=== PATIENT | female | born 1980 | race Caucasian/White ===

== ENCOUNTER 2019-04-08 11:04 | Emergency (ER) | payer SELFPAY ==
[~2019-04-08] VITALS: Ht 170.2 cm; Wt 60.0 kg
[2019-04-08 11:11] VITALS: BP 128/87
[2019-04-08] MEDS ORDERED: LORazepam INJ 2 MG/ML (ATIVAN) VIAL IM ONE (11:30)
--- NOTE | 2019-04-08 11:33 | ED General ---
General Chief Complaint: General Problems/Pain Stated Complaint: ITCHING Nursing Triage Note: Pt amb to triage with c/o itching. Pt reports upon rise on this day, she began to experience generalized itching sensation. Pt states, "I'm itchy, bitchy, and not happy bout it." No hives, rash, or redness noted. Pt denies pain discomfort or SOA. Pt noted to be elated and restless during triage. Nursing Sepsis Screen: No Definite Risk Source of Information: Patient Exam Limitations: No Limitations History of Present Illness Date Seen by Provider: Apr 08, 2019 Time Seen by Provider: 11:27 Initial Comments to ER by private vehicle with reports of generalized itching. Began upon awakening. She is unable to sit still, nearly dancing during the exam. Denies any methamphetamine use "unless someone slipped it in my drink". When I asked her when that might of happened she states "last night". Timing/Duration: 4-6 Hours Severity: Moderate Allergies and Home Medications Allergies Coded Allergies: No Known Drug Allergies (Unverified , 04/08/19) Patient Home Medication List Home Medication List Reviewed: Yes Review of Systems Review of Systems Constitutional: see HPI EENTM: see HPI Respiratory: no symptoms reported Cardiovascular: no symptoms reported Genitourinary: no symptoms reported Musculoskeletal: no symptoms reported Skin: see HPI Psychiatric/Neurological: No Symptoms Reported Hematologic/Lymphatic: No Symptoms Reported Past Tbbgehp-Dvsblv-Jaszce Hx Patient Social History Recent Foreign Travel: No Contact w/Someone Who Travel: No Recent Infectious Disease Expo: No Physical Exam Vital Signs Vital Signs - First Documented 04/08/19 11:11 Temp 36.6 Pulse 97 Resp 18 B/P (MAP) 128/87 (101) Pulse Ox 98 O2 Delivery Room Air Capillary Refill : Less Than 3 Seconds Height, Weight, BMI Height: '" Weight: lbs. oz. kg; 20.00 BMI Method: General Appearance: No Apparent Distress, WD/WN, Other (patient is quite clearly under the influence of most likely methamphetamine. She is nearly dancing during my exam. Asked why she is moving like this, she states she doesn't like anyone in her personal space and she always does this. She also states that she is legally blind) HEENT: PERRL/EOMI, TMs Normal Neck: Full Range of Motion, Normal Inspection Respiratory: No Accessory Muscle Use, No Respiratory Distress Cardiovascular: Normal Peripheral Pulses, Tachycardia Gastrointestinal: Non Tender, Soft Extremity: Normal Capillary Refill, Normal Inspection Neurologic/Psychiatric: Alert, Oriented x3 Skin: Normal Color, Warm/Dry Progress/Results/Core Measures Suspected Sepsis Recent Fever Within 48 Hours: No Infection Criteria Present: None New/Unexplained Altered Menta: No Sepsis Screen: No Definite Risk SIRS Temperature: Pulse: 97 Respiratory Rate: 18 Laboratory Tests 04/08/19 11:35: White Blood Count 10.0 Blood Pressure 128 /87 Mean: 101 Laboratory Tests 04/08/19 11:35: Platelet Count 300 Results/Orders Lab Results Laboratory Tests Test 04/08/19 11:35 Range/Units White Blood Count 10.0 4.3-11.0 10^3/uL Red Blood Count 3.75 L 4.35-5.85 10^6/uL Hemoglobin 11.7 11.5-16.0 G/DL Hematocrit 35 35-52 % Mean Corpuscular Volume 92 80-99 FL Mean Corpuscular Hemoglobin 31 25-34 PG Mean Corpuscular Hemoglobin Concent 34 32-36 G/DL Red Cell Distribution Width 13.3 10.0-14.5 % Platelet Count 300 130-400 10^3/uL Mean Platelet Volume 8.8 7.4-10.4 FL Neutrophils (%) (Auto) 65 42-75 % Lymphocytes (%) (Auto) 24 12-44 % Monocytes (%) (Auto) 11 0-12 % Eosinophils (%) (Auto) 0 0-10 % Basophils (%) (Auto) 1 0-10 % Neutrophils # (Auto) 6.5 1.8-7.8 X 10^3 Lymphocytes # (Auto) 2.4 1.0-4.0 X 10^3 Monocytes # (Auto) 1.1 H 0.0-1.0 X 10^3 Eosinophils # (Auto) 0.0 0.0-0.3 10^3/uL Basophils # (Auto) 0.1 0.0-0.1 10^3/uL My Orders Orders - ERIK BARTON APRN Cbc With Automated Diff (04/08/19 11:18) Comprehensive Metabolic Panel (04/08/19 11:18) Drug Screen Stat (Urine) (04/08/19 11:18) Lorazepam Injection (Ativan Injection) (04/08/19 11:30) Hydroxyzine Cap/Tab (Vistaril) (04/08/19 11:45) Vital Signs/I&O 04/08/19 11:11 Temp 36.6 Pulse 97 Resp 18 B/P (MAP) 128/87 (101) Pulse Ox 98 O2 Delivery Room Air Capillary Refill : Less Than 3 Seconds Blood Pressure Mean: 101 Departure Communication (Admissions) 1201-pt signed out AMA at this time. refused the ativan injection stating it would require her to use "4 epi pens" Impression Primary Impression: suspected methamphetamine use Disposition: AGAINST MEDICAL ADVICE Condition: Against Medical Advice Departure-Patient Inst. Decision time for Depature: 11:32 Referrals: NO,LOCAL PHYSICIAN (PCP/Family) Primary Care Physician Patient Instructions: Drug Abuse and Drug Addiction (DC) Add. Discharge Instructions: 1. It would Be a good idea to discontinue any additional methamphetamine use. I have Provided you with a list of resources for outpatient substance abuse. Return to ER for any concerns. All discharge instructions reviewed with patient and/or family. Voiced understanding. ERIK BARTON APRN Apr 08, 2019 11:32
--- NOTE | 2019-04-08 11:40 | NUR ---
Pt refused to give urine sample stating, "oh I can't jonah that for personal reasons. If ya know, ya know." Provider notified.
[2019-04-08 11:43] LABS: BASOPHILS # (AUTO) 0.1 10^3/uL (0.0-0.1); BASOPHILS % (AUTO) 1 % (0-10); EOSINOPHILS % (AUTO) 0 % (0-10); HEMATOCRIT 35 % (35-52); HEMOGLOBIN 11.7 G/DL (11.5-16.0); LYMPHOCYTES # (AUTO) 2.4 X 10^3 (1.0-4.0); LYMPHOCYTES % (AUTO) 24 % (12-44); MEAN CORPUSCULAR HEMOGLOBIN 31 PG (25-34); MEAN CORPUSCULAR HGB CONC 34 G/DL (32-36); MEAN CORPUSCULAR VOLUME 92 FL (80-99); MEAN PLATELET VOLUME 8.8 FL (7.4-10.4); MONOCYTES # (AUTO) 1.1 X 10^3 (0.0-1.0); MONOCYTES % (AUTO) 11 % (0-12); NEUTROPHILS # (AUTO) 6.5 X 10^3 (1.8-7.8); NEUTROPHILS % (AUTO) 65 % (42-75); PLATELET COUNT 300 10^3/uL (130-400); RED CELL DISTRIBUTION WIDTH 13.3 % (10.0-14.5)
[2019-04-08] MEDS ORDERED: hydrOXYzine (VISTARIL/ATARAX) 25 MG capsule/tablet PO ONE (11:45)
--- NOTE | 2019-04-08 11:51 | NUR ---
Met with [facility] Employee, Charlene. She said the pt is unable to be at [facility] due to drug abuse. She is encouraging the pt to go for rehab. The pt acted like she knew me and said "oh yeah, you went off on me. I know you." This information writer has not met the pt before. Redirected the pt to registration alongside Charlene who remained with the pt for support and direction.
--- NOTE | 2019-04-08 11:55 | NUR ---
REGISTRATION REPORTS PT WANT TO LEAVE AMA.
[2019-04-08 12:10] LABS: ALANINE AMINOTRANSFERASE 22 U/L (0-55); ALBUMIN 4.5 GM/DL (3.2-4.5); ALKALINE PHOSPHATASE 61 U/L (40-136); BILIRUBIN,TOTAL 0.6 MG/DL (0.1-1.0); BUN/CREATININE RATIO 30; CARBON DIOXIDE 20 MMOL/L (21-32); CHLORIDE 105 MMOL/L (98-107); CREATININE SERUM 1.01 MG/DL (0.60-1.30); GFR ESTIMATED > 60; GLUCOSE 92 MG/DL (70-105); POTASSIUM 4.1 MMOL/L (3.6-5.0); SODIUM 136 MMOL/L (135-145); TOTAL PROTEIN 7.7 GM/DL (6.4-8.2)
== END 2019-04-08 12:01 | disposition left against medical advice (07) ==
LOC: ER 11:08
DX: L29.9 Pruritus, unspecified (principal)
CPT/HCPCS: 36415; 80053; 85025

== ENCOUNTER 2019-09-09 11:37 | Emergency (ER) | payer SELFPAY ==
[~2019-09-09] VITALS: Ht 177.8 cm; Wt 58.5 kg
[2019-09-09] MEDS ORDERED: ZIPRASIDONE INJECTION 10 MG in WATER (STERILE) FOR INJECTION 1.2 ML IM PRN (12:00)
[2019-09-09 12:05] VITALS: BP 129/80
--- NOTE | 2019-09-09 12:06 | ED Cough/URI ---
General Chief Complaint: Respiratory Problems Stated Complaint: SOA;LUPUS Source: patient Exam Limitations: no limitations History of Present Illness Date Seen by Provider: Sep 09, 2019 Time Seen by Provider: 12:01 Initial Comments To ER reports of shortness of breath from her lupus because nobody will give her a hydroxychloroquine that she needs. She has no fevers or cough. She is homeless, she is from [facility] but she states that she met some very nice gentleman from [facility] with whom she is living now. She has joint pains, a rash all over her body. She states she's going to go to [email or web address] and cause [place] law.She also states this is going to be bigger than black lives matter and this will also cause zombies. She states that she was in rehabilitation in [place], but she was kicked out. SHe states that she is a recov ering meth addict, has been clean for a couple of days. Timing/Duration: constant Associated Symptoms: denies symptoms Allergies and Home Medications Allergies Coded Allergies: No Known Drug Allergies (Unverified , 04/08/19) Patient Home Medication List Home Medication List Reviewed: Yes Review of Systems Review of Systems Constitutional: see HPI EENTM: see HPI Respiratory: no symptoms reported Cardiovascular: no symptoms reported Genitourinary: no symptoms reported Musculoskeletal: no symptoms reported Skin: no symptoms reported Psychiatric/Neurological: No Symptoms Reported Hematologic/Lymphatic: No Symptoms Reported Past Hypujam-Ldzwma-Slduod Hx Patient Social History Type Used: Cigarettes 2nd Hand Smoke Exposure: Yes Recent Hopitalizations: No Physical Abuse: No Sexual Abuse: No Mistreated: No Fear: No Seasonal Allergies Seasonal Allergies: No Past Medical History Surgeries: Yes (Renal ) Respiratory: No Cardiac: No Neurological: No Genitourinary: Yes (ROB) Gastrointestinal: No Endocrine: No HEENT: No Cancer: No Psychosocial: No Integumentary: No Blood Disorders: No Physical Exam Vital Signs - First Documented 09/09/19 09/09/19 11:45 12:05 Temp 36.7 Pulse 78 Resp 21 B/P (MAP) 139/79 (99) Pulse Ox 99 O2 Delivery Room Air Capillary Refill : Height: '" Weight: lbs. oz. kg; 20.00 BMI Method: General Appearance: WD/WN, no apparent distress, thin (unable to sit still, writhing movements, dystonic movements of her face and lips. Talk to the high rate of speed in a pressured voice about a variety of subjects. She is insistent that she wants her prescription for hydroxychloroquine for her lupus. She also states that she likes my shoes and my is a very ronal lady) Neck: non-tender, full range of motion Respiratory: no respiratory distress, no accessory muscle use Gastrointestinal: normal bowel sounds, non tender Extremities: normal range of motion, non-tender Neurologic/Psychiatric: alert Skin: normal color, warm/dry Progress/Results/Core Measures Suspected Sepsis SIRS Temperature: Pulse: Respiratory Rate: Blood Pressure / Mean: Results/Orders Medications Given in ED Current Medications Medications Dose Ordered Sig/Leno Route Start Time Stop Time Status Last Admin Dose Admin Ziprasidone 10 mg/ Sterile Water 1.2 ml @ 0 mls/hr ONCE PRN IM 09/09/19 12:00 09/09/19 12:31 DC 09/09/19 12:00 0.5 MLS/HR Vital Signs/I&O 09/09/19 09/09/19 11:45 12:05 Temp 36.7 Pulse 78 81 Resp 21 20 B/P (MAP) 139/79 (99) 129/80 Pulse Ox 99 O2 Delivery Room Air Room Air Capillary Refill : Departure Communication (Admissions) I gave her 10 mg of Geodon intramuscularly left vastus lateralis Impression Primary Impression: self-reported history of lupus Additional Impressions: recent methamphetamine use Psychosis Disposition: HOME, SELF-CARE Condition: Stable Departure-Patient Inst. Decision time for Depature: 12:05 Referrals: EDVIN PENA BETHANY N MD NO,LOCAL PHYSICIAN (PCP) Primary Care Physician Patient Instructions: Acute Psychosis (DC) Add. Discharge Instructions: All discharge instructions reviewed with patient and/or family. Voiced understanding. ERIK BARTON APRN Sep 09, 2019 12:06
--- OUTSIDE RECORDS SUMMARY | 2019-09-09 14:47 | XMS REPORT | CCD ---
Author Author ANAMARIA KULKARNI Organization Unknown Address [address] [facility] [address] [place], [place] [id number] Care Team Providers Care Bilingual Legal Assistant Name Role Phone ZELAYA, TREVA DO Attphys ZELAYA, TREVA DO Prisurg Vital Signs Unknown or Not Available. Allergies Allergy Code Allergy Type Reaction Status LATEX 0 Allergy to substance A ctive KEFLEX 900171 Drug allergy Active Procedures Procedure Code Procedure Type Date SKULL PARTIAL 98819970 SNOMED CT 07/29/2015 History of Immunizations Unknown or Not Available. Problems Unknown or Not Available. Results Unknown or Not Available. Active Medications Unknown or Not Available. Medications Administered During Visit Unknown or Not Available. Encounters Encounter Diagnosis Diagnosis Code Start Date Health condition feared but not present [id number] 09 07/29/2015 Social History Smoking Status Code Start Date End Date Current every day smoker [id number] Patient Decision Aids Unknown or Not Available. Discharge Instructions You were admitted to [facility] on 07/29/2015 16:12 with a principal diagnosis of Person with feared health complaint in whom no diagnosis is made You were discharged from [facility] on 07/29/2015 16:48 Should you have any questions prior to discharge, please contact a member of your healthcare team. If you have left the hospital and have any questions, please contact your primary care physician. Chief Complaint and Reason For Visit Chief Complaint Date of Onset FOREIGN BODY STUCK IN EAR LOBE Function Status Unknown or Not Available. Plan of Care Unknown or Not Available. Referral/Transition of Care Unknown or Not Available.
--- OUTSIDE RECORDS SUMMARY | 2019-09-09 14:47 | XMS REPORT ---
Author Author aSra Garcia Organization [facility] Address [address] [place], [place] [id number] Care Team Providers Care Derrick Boat Leverman Name Role Phone Denys Garcia PCP Unavailable Marilu Madsen PreferredProvider Unavailable Allergies and Adverse Reactions Name Reaction Notes Keflex Latex Plan of Treatment Planned Activity Comments Planned Date Planned Time Plan/Goal US TRANSVAG NON-OB 03/01/2016 12:00 AM Pap smear 03/01/2016 12:00 AM ALICE prep 03/01/2016 12:00 AM Medications Name Start Date Expiration Date SIG Comments Lortab 5-500 mg oral tablet 04/04/2011 04/14/2011 take 1 tablet by oral route every 6 hours as needed for pain for 10 days metronidazole 500 mg oral tablet 12/25/2012 01/01/2013 take 1 tablet (500 mg) by oral route 2 times per day for 7 days Flagyl 500 mg oral tablet 03/13/2016 03/20/2016 take 1 tablet (500 mg) by oral route every 12 hours for 7 days Discontinued Name Start Date Discontinued Date SIG Comments Percocet 5-325 mg oral tablet 12/31/2011 ta ke 2 tablets by oral route every 6 hours as needed Paxil 20 mg oral tablet 05/18/2013 07/20/2013 take 1 t ablet (20 mg) by oral route once daily Problem List Description Status Onset Bipolar Disorder Active Kidney Stones Active Anxiety Disorder Active 05/19/2013 Depression Active 05/19/2013 Vital Signs Date Time BP-Sys(mm[Hg] BP-Brigitte(mm[Hg]) HR(bpm) RR(rpm) Temp WT HT HC BMI BSA BMI Percentile O2 Sat(%) 03/01/2016 8:07:00 AM 124 mmHg 64 mmHg 62 bpm 18 rpm 97.6 F 155.375 lbs 69 in 22.94 kg/m2 1.85 m2 97 % 07/20/2013 3:24:00 PM 115 mmHg 72 mmHg 78 bpm 18 rpm 98 F 138 lbs 68 in 20.9826 kg/m 1.733 m 07/16/2013 1:44:00 PM 142 mmHg 92 mmHg 72 bpm 16 rpm 98.5 F 141.375 lbs 100 % 05/18/2013 11:21:00 AM 142 mmHg 76 mmHg 92 bpm 18 rpm 98.5 F 136.375 lbs 66 in 22.0113 kg/m 1.6972 m 95 % 12/31/2011 9:25:00 AM 122 mmHg 70 mmHg 98 bpm 16 rpm 96.8 F 128.125 lbs 99 % 05/04/2011 10:53:00 AM 110 mmHg 70 mmHg 76 bpm 18 rpm 97.8 F 126 lbs 66 in 20.3367 kg/m 1.6314 m 97 % 04/04/2011 10:11:00 AM 110 mmHg 60 mmHg 96 bpm 18 rpm 96.7 F 127 lbs 100 % 03/07/2011 10:05:00 AM 120 mmHg 80 mmHg 108 bpm 18 rpm 96.4 F 130 lbs 66 i n 20.9823 kg/m 1.6571 m 100 % 02/28/2011 10:30:00 AM 100 mmHg 78 mmHg 78 bpm 18 rpm 96.6 F 132 lbs 66 in 21.31 kg/m2 1.67 m2 100 % 02/21/2011 10:20:00 AM 124 mmHg 86 mmHg 79 bpm 14 rpm 97.6 F 131.125 lbs 99 % 01/03/2011 10:59:00 AM 120 mmHg 60 mmHg 66 bpm 18 rpm 97.3 F 137 lbs 66 in 22.11 kg/m2 1.70 m2 99 % 12/26/2010 9:30:00 AM 120 mmHg 76 mmHg 99 bpm 16 rpm 97.9 F 137.25 lbs 66. 75 in 21.6575 kg/m 1.7123 m 100 % Social History Name Description Comments Tobacco Current every day smoker History of Procedures Date Ordered Description Order Status 12/26/2010 12:00 AM COMPREHEN METABOLIC PANEL Reviewed 12/26/2010 12:00 AM ASSAY THYROID STIM HORMONE Reviewed 12/26/2010 12:00 AM COMPLETE CBC W/AUTO DIFF WBC Reviewed 12/26/2010 12:00 AM HERPES SIMPLEX TYPE 1 TEST Reviewed 12/26/2010 12:00 AM ACUTE HEPATITIS PANEL Reviewed 12/26/2010 12:00 AM HIV-1/HIV-2 1 RESULT ANTBDY Reviewed 12/26/2010 12:00 AM IMMUNOFLUORESCENT STUDY Reviewed 12/26/2010 12:00 AM SYPHILIS TEST NON-TREP QUAL Reviewed 02/21/2011 12:00 AM CYTOPATH C/V MANUAL Reviewed 02/28/2011 12:00 AM INJECTION THERAPY OF VEINS Reviewed 04/04/2011 12:00 AM COMPLETE CBC W/AUTO DIFF WBC Reviewed 04/04/2011 12:00 AM COMPREHEN METABOLIC PANEL Reviewed 04/04/2011 12:00 AM INJECTION THERAPY OF VEINS Reviewed 03/01/2016 9:26 AM URINALYSIS AUTO W/O SCOPE Reviewed 03/01/2016 9:26 AM URINE TEST Reviewed 03/01/2016 12:00 AM US EXAM PELVIC COMPLETE Reviewed 03/01/2016 12:00 AM SPECIMEN HANDLING OFFICE-LAB Reviewed 03/01/2016 12:00 AM CHYLMD TRACH DNA AMP PROBE Reviewed 03/01/2016 12:00 AM N.GONORRHOEAE DNA AMP PROB Reviewed 03/01/2016 12:00 AM SMEAR WET MOUNT SALINE/INK Reviewed 03/01/2016 12:00 AM HEPATITIS B SURFACE AG EIA Reviewed 03/01/2016 12:00 AM HIV-1 AG W/HIV-1 & HIV-2 AB Reviewed 03/01/2016 12:00 AM SYPHILIS TEST NON-TREPONEMAL ANTIBODY QU AL Reviewed 12/31/2011 12:00 AM ASSAY THYROID STIM HORMONE Reviewed 12/31/2011 12:00 AM ASSAY OF TOTAL THYROXINE Reviewed 12/31/2011 12:00 AM URINALYSIS AUTO W/SCOPE Reviewed 12/31/2011 12:00 AM HERPES SIMPLEX TYPE 1 TEST Reviewed 12/31/2011 12:00 AM ACUTE HEPATITIS PANEL Reviewed 12/31/2011 12:00 AM HIV-1/HIV-2 1 RESULT ANTBDY Reviewed 12/31/2011 12:00 AM IMMUNOFLUORESCENT STUDY Reviewed 12/25/2012 12:00 AM HERPES SIMPLEX GIUSEPPE ANTBDY Reviewed 12/25/2012 12:00 AM Culture-Vaginal Reviewed 12/25/2012 12:00 AM CHYLMD TRACH DNA AMP PROBE Reviewed 12/25/2012 12:00 AM N.GONORRHOEAE DNA AMP PROB Reviewed 12/25/2012 12:00 AM SMEAR WET MOUNT SALINE/INK Reviewed 12/25/2012 12:00 AM NO CHARGE OV Reviewed 05/18/2013 12:00 AM COMPLETE CBC W/AUTO DIFF WBC Reviewed 05/18/2013 12:00 AM COMPREHEN METABOLIC PANEL Reviewed 05/18/2013 12:00 AM URINALYSIS AUTO W/SCOPE Reviewed 05/18/2013 12:00 AM RPR w Reflex to TP Reviewed 05/18/2013 12:00 AM HIV-1ANTIBODY Reviewed 05/18/2013 12:00 AM ACUTE HEPATITIS PANEL Reviewed 05/18/2013 12:00 AM CHORIONIC GONADOTROPIN ASSAY Reviewed 05/18/2013 12:00 AM X-RAY EXAM OF ABDOMEN Reviewed 07/27/2013 12:00 AM Bilateral Breast Ultrasound Reviewed 07/27/2013 12:00 AM COMPUTER DX MAMMOGRAM ADD-ON Reviewed 07/20/2013 12:00 AM COMPUTER DX MAMMOGRAM ADD-ON Reviewed 07/20/2013 12:00 AM Breast Ultrasound (bilateral, EDW pt.) Ac miller Results Summary Date and Description Results 12/26/2010 10:07 AM WBC 7.1 RBC 4.25 HGB 13.80 g /dLHCT 40.20 %MCV 95.0 fLMCH 32.50 pgMCHC 34.30 g/dLRDW SD 46 RDW CV 13.30 %MPV 10.30 fLPLT 236 NRBC# 0.00 NRBC% 0.0 %NEUT 63.30 %%LYMP 27.0 %%MONO 6.70 %%EOS 2.70 %%BASO 0.30 %#NEUT 4.47 #LYMP 1.90 #MONO 0.47 #EOS 0.19 #BASO 0.02 MANUAL DIFF NOT IND GLUCOSE 90.0 mg/dLSODIUM 139.0 mmol/LPOTASSIUM 3.80 mmol/LCHLORIDE 108.0 mmol/LCO2 23.0 mmol/LBUN 13.0 mg/dLCREATININE 0.70 mg/dLSGOT/AST 14.0 IU/LSGPT/ALT 11.0 IU/LALK PHOS 47.0 IU/LTOTAL PROTEIN 7.10 g/dLALBUMIN 4.30 g/dLTOTAL BILI 0.60 mg/dLCALCIUM 9.0 mg/dLAGE 30 GFR NonAA 97 GFR AA 118 eGFR >60 mL/min/1.73 m2eGFR AA* >60 TSH 0.830 uIU/mL 04/04/2011 11:20 AM WBC 7.8 RBC 4.07 HGB 13.20 g /dLHCT 38.0 %MCV 93.0 fLMCH 32.40 pgMCHC 34.70 g/dLRDW SD 43 RDW CV 12.70 %MPV 9.90 fLPLT 244 NRBC# 0.00 NRBC% 0.0 %NEUT 68.60 %%LYMP 23.20 %%MONO 6.40 %%EOS 1.50 %%BASO 0.30 %#NEUT 5.38 #LYMP 1.82 #MONO 0.50 #EOS 0.12 #BASO 0.02 MANUAL DIFF NOT IND GLUCOSE 89.0 mg/dLSODIUM 139.0 mmol/LPOTASSIUM 3.80 mmol/LCHLORIDE 106.0 mmol/LCO2 25.0 mmol/LBUN 12.0 mg/dLCREATININE 0.70 mg/dLSGOT/AST 14.0 IU/LSGPT/ALT 12.0 IU/LALK PHOS 52.0 IU/LTOTAL PROTEIN 6.70 g/dLALBUMIN 3.90 g/dLTOTAL BILI 0.80 mg/dLCALCIUM 8.90 mg/dLAGE 30 GFR NonAA 97 GFR AA 118 eGFR >60 mL/min/1.73 m2eGFR AA* >60 12/31/2011 9:56 AM COLOR YELLOW APPEARANCE JULIUS R SPEC GRAV 1.020 pH 6.5 PROTEIN NEGATIVE GLUCOSE NEGATIVE KETONE NEGATIVE BILIRUBIN NEGATIVE BLOOD NEGATIVE NITRITE NEGATIVE LEUK SCREEN NEGATIVE WBC/HPF RARE RBC/HPF NEGATIVE CASTS/LPF NEGATIVE CRYSTALS NEGATIVE MUCOUS THRDS NEGATIVE BACTERIA FEW EPITH CELLS 1+ SQUAMOUS TRICHOMONAS NEGATIVE YEAST NEGATIVE TSH 1.820 uIU/mLT4 5.0 ug/dLHIV AG/AB COMBO 0.53 SOURCE: URINE 12/25/2012 6:56 PM WET PREP NO TRICH SEEN CLUE CELLS PRESENT SOURCE: GENITAL 05/18/2013 12:40 PM WBC 7.1 RBC 4.06 HGB 12.80 g /dLHCT 37.90 %MCV 93.0 fLMCH 31.50 pgMCHC 33.80 g/dLRDW SD 44 RDW CV 12.80 %MPV 9.60 fLPLT 222 NRBC# 0.00 NRBC% 0.0 %NEUT 70.10 %%LYMP 25.40 %%MONO 3.40 %%EOS 0.70 %%BASO 0.40 %#NEUT 5.00 #LYMP 1.81 #MONO 0.24 #EOS 0.05 #BASO 0.03 MANUAL DIFF NOT IND TEST NEGATIVE COLOR YELLOW APPEARANCE CLOUDY SPEC GRAV 1.020 pH 7.0 PROTEIN NEGATIVE GLUCOSE NEGATIVE KETONE NEGATIVE BILIRUBIN NEGATIVE BLOOD NEGATIVE NITRITE NEGATIVE LEUK SCREEN NEGATIVE WBC/HPF NEGATIVE RBC/HPF NEGATIVE CASTS/LPF NEGATIVE CRYSTALS 2++ AMORPHOUS MUCOUS THRDS NEGATIVE BACTERIA NEGATIVE EPITH CELLS FEW SQUAMOUS TRICHOMONAS NEGATIVE YEAST NEGATIVE CULT SET UP? NO GLUCOSE 77.0 mg/dLSODIUM 141.0 mmol/LPOTASSIUM 3.50 mmol/LCHLORIDE 108.0 mmol/LCO2 25.0 mmol/LBUN 13.0 mg/dLCREATININE 0.70 mg/dLSGOT/AST 10.0 IU/LSGPT/ALT 13.0 IU/LALK PHOS 56.0 IU/LTOTAL PROTEIN 6.90 g/dLALBUMIN 3.70 g/dLTOTAL BILI 0.40 mg/dLCALCIUM 9.0 mg/dLAGE 32 GFR NonAA 96 GFR AA 116 eGFR >60 mL/min/1.73 m2eGFR AA* >60 HIV AG/AB COMBO 0.09 RPR Non Reactive Hep A Ab, IgM Negative HBsAg Screen Negative Hep B Core Ab, IgM Negative Hep C Virus Ab <0.1 03/01/2016 9:24 AM RPR Non Reactive HIV AG/AB C OMBO 0.09 HBsAg Screen Negative 03/01/2016 9:26 AM Clarity Ur clear Color Ur lt yellow Glucose Ur-sCnc neg Bilirub Ur Ql Strip neg Ketones Ur Ql Strip neg Sp Gr Ur Qn >=1.030 Hgb Ur Ql Strip neg pH Ur-LsCnc 5.5 Prot Ur Ql Strip neg Urobilinogen Ur-mCnc 1.0E/U/dL Nitrite Ur Ql Strip neg WBC Est Ur Ql Strip neg Test, Urine neg History Of Immunizations Not available. History of Past Illness Name Date of Onset Comments Bipolar Disorder Kidney Stones Anxiety Disorder 05/19/2013 Depression 05/19/2013 Fatigue Dec 26 2010 9:32AM STD Exposure Dec 26 2010 9:32AM Vaginal Discharge Dec 26 2010 9:32AM High-Risk Sexual Behavior Dec 26 2010 9:32AM Varicose Veins of Lower Extremities with Pain Jan 03 2011 10 :57AM Routine gynecological examination Feb 21 2011 10:16AM Hernia, Umibilical Feb 21 2011 10:16AM Postoperative Follow-up Mar 07 2011 10:08AM Umbilical Hernia: No Obstruction Or Gangrene Feb 28 2011 10: 49AM Varicose Veins Of Lower Extremities With Pain Feb 28 2011 10 :33AM pre-operative examination, unspecified Apr 04 2011 10:52AM Varicose Veins Of Lower Extremities With Pain Apr 04 2011 10 :17AM Postoperative Follow-Up Visit May 04 2011 10:54AM Umbilical Hernia Apr 09 2011 11:44AM Fatigue Dec 31 2011 9:29AM STD Exposure Dec 31 2011 9:29AM Vaginal Discharge Dec 31 2011 9:29AM High-Risk Sexual Behavior Dec 31 2011 9:29AM Bacterial Vaginosis Dec 25 2012 3:22PM Vaginal Discharge Dec 25 2012 3:22PM Abdominal Pain May 18 2013 11:23AM Anxiety Disorder May 18 2013 11:23AM Depression May 18 2013 11:23AM Breast Lumps and nipple discharge Jul 20 2013 4:06PM Breast Mass Jul 20 2013 3:39PM Nipple Discharge Jul 20 2013 3:39PM Breast Mass Jul 16 2013 1:45PM Routine gynecological examination Mar 01 2016 8:10AM High risk sexual behavior Mar 01 2016 8:10AM Vaginal odor Mar 01 2016 8:10AM Irregular menses Mar 01 2016 9:53AM Pelvic pain Mar 01 2016 9:53AM Benign Neoplasm Of Skin Of Trunk Dec 05 2016 1:59PM Payers Insurance Name Company Name Plan Name Plan Number Policy Number [employer] [place] Group Number Start Date Medicare Part B Medicare Of [place] [id number] June [place] [employer] Program [place] [employer] Genn[employer] tance Prog [id number] N/A Medicare Part A Medicare Part A [id number] N/A [place] Professor Of Literature Prog - RHC [place] Professor [employer] Literature Prog - RH C [id number] N/A Disability Determination Disability Determination [id number] N/A [facility] [phone] N/A [facility] [place] [facility] [id number] N/A [employer] [id number] N/A Medicare Part A Medicare - Lab/Xray [id number] N/A History of Encounters Visit Date Visit Type Provider 12/05/2016 Office visit Denys Garcia MD 03/01/2016 Office visit Marilu Madsen MECHANICAL EXPERT 07/20/2013 Office visit Fabiana maldonado MECHANICAL EXPERT 07/16/2013 Office visit Brendan Spencer APR N 05/18/2013 Office visit Marilu Madsen MECHANICAL EXPERT 12/25/2012 Office visit Brendan Spencer APR N 02/12/2012 Records Request Denys Garcia MD 12/31/2011 Office visit Sarah Alvarez MD 05/04/2011 Office visit Denys Garcia MD 04/19/2011 [facility] Denys Garcia MD 04/04/2011 Office visit Denys Garcia MD 03/07/2011 Office visit Denys Garcia MD 02/28/2011 Procedures Denys Garcia MD 02/21/2011 Office visit Sarah Alvarez MD 01/03/2011 Office visit Denys Garcia MD 12/26/2010 Office visit Sarah Alvarez MD
--- OUTSIDE RECORDS SUMMARY | 2019-09-09 14:47 | XMS REPORT | CCD ---
Author Author ANAMARIA JUAREZ Organization Unknown Address [address] [facility] [address] [place] [address] Care Team Providers Care Machines Technician Name Role Phone ZELAYA, TREVA DO Attphys ZELAYA, TREVA DO Prisurg Allergies Allergy Code Allergy Type Reaction Status LATEX 0 Allergy to substance A ctive KEFLEX 394784 Drug allergy Active Active Medications Unknown or Not Available. Problems Unknown or Not Available. Procedures Procedure Code Procedure Type Date CULTURE VAGINAL 995208820 SNOMED CT 12/27/2015 ALICE PREP 11172273 SNOMED [address] 12/27/2015 ^UA AUTO DIPSTICK ONLY 879394653 SNOMED CT 06/2015 CHLAMYDIA/GC AMPLIFIED DNA 867831832 SNOMED CT 12/27/2015 UA ROUTINE C&S IF IND 930115171 SNOMED CT 06/2015 Results UA ROUTINE C&S IF IND - Collect Date/Nelson e: 12/27/2015 20:30 Test Name Code Test Result Test Units Maria t Ref Range COLOR YELLOW N/A NL: YELLOW APPEARANCE CLEAR N/A NL: CLEAR SPEC GRAV >=1.030 N/A NL: 1.002 - 1.022 pH 6.0 N/A NL: 5 - 9 PROTEIN NEGATIVE N/A NL: NEGATIVE mg/dl GLUCOSE NEGATIVE N/A NL: NEGATIVE mg/dl KETONE NEGATIVE N/A NL: NEGATIVE mg/dl BILIRUBIN NEGATIVE N/A NL: NEGATI VE BLOOD NEGATIVE N/A NL: NEGATIVE NITRITE NEGATIVE N/A NL: NEGATIVE LEUK SCREEN NEGATIVE N/A NL: NEGA TIVE MICRO INDICATED? NOT INDICATED N/A CHLAMYDIA/GC AMPLIFIED DNA - Collect Devon e/Time: 12/27/2015 20:30 Test Name Code Test Result Test Units Maria t Ref Range Neisseria Gonorrhoeae 15637-6 NEGATIVE N/A NEGATIVE Chlamydia Trachomatis 12189-4 NEGATIVE N/A NEGATIVE Function Status Unknown or Not Available. History of Immunizations Unknown or Not Available. Plan of Treatment Unknown or Not Available. Social History Smoking Status Code Start Date End Date Current every day smoker [id number] Vital Signs Unknown or Not Available. Function Status Unknown or Not Available. Goals Unknown or Not Available. ASSESSMENTS Unknown or Not Available. Health Concerns Section Unknown or Not Available.
--- OUTSIDE RECORDS SUMMARY | 2019-09-09 14:47 | XMS REPORT ---
Author Sara Houston Organization [facility] Address [address] [place], [place] [id number] Care Team Providers Care Straight Cutter Name Role Phone Marilu Madsen PCP Unavailable Marilu Madsen PreferredProvider Unavailable Allergies and Adverse Reactions Name Reaction Notes Keflex Latex Plan of Treatment Planned Activity Comments Planned Date Planned Time Plan/Goal US TRANSVAG NON-OB 03/01/2016 12:00 AM Pap smear 03/01/2016 12:00 AM ALICE prep 03/01/2016 12:00 AM Wet prep 03/01/2016 12:00 AM Herpes Ab IgG 12/25/2012 12:00 AM Gonorrhea 12/25/2012 12:00 AM Medications Active Name Start Date Estimated Completion Date SIG Co mments Flagyl 500 mg oral tablet 03/13/2016 03/20/2016 take 1 tablet (500 mg) by oral route every 12 hours for 7 days Name Start Date Expiration Date SIG Comments Lortab 5-500 mg oral tablet 04/04/2011 04/14/2011 take 1 tablet by oral route every 6 hours as needed for pain for 10 days metronidazole 500 mg oral tablet 12/25/2012 01/01/2013 take 1 tablet (500 mg) by oral route 2 times per day for 7 days Discontinued Name Start Date [...] 03/01/2016 12:00 AM US EXAM PELVIC COMPLETE Returned 03/01/2016 12:00 AM SPECIMEN HANDLING OFFICE-LAB Reviewed 03/01/2016 12:00 AM CHYLMD TRACH DNA AMP PROBE Returned 03/01/2016 12:00 AM N.GONORRHOEAE DNA AMP PROB Returned 03/01/2016 12:00 AM HEPATITIS B SURFACE AG EIA Returned 03/01/2016 12:00 AM HIV-1 AG W/HIV-1 & HIV-2 AB Returned 03/01/2016 12:00 AM SYPHILIS TEST NON-TREPONEMAL ANTIBODY QU AL Returned 12/31/2011 12:00 AM ASSAY THYROID STIM HORMONE Reviewed 12/31/2011 12:00 AM ASSAY OF TOTAL THYROXINE Reviewed 12/31/2011 12:00 AM URINALYSIS AUTO W/SCOPE Reviewed 12/31/2011 12:00 AM HERPES SIMPLEX TYPE 1 TEST Reviewed 12/31/2011 12:00 AM ACUTE HEPATITIS PANEL Reviewed 12/31/2011 12:00 AM HIV-1/HIV-2 1 RESULT ANTBDY Reviewed 12/31/2011 12:00 AM IMMUNOFLUORESCENT STUDY Reviewed 12/25/2012 12:00 AM Culture-Vaginal Reviewed 12/25/2012 12:00 AM CHYLMD TRACH DNA AMP PROBE Reviewed 12/25/2012 12:00 AM SMEAR WET MOUNT [...] (bilateral, EDW pt.) Ac miller Results Summary Data and Description Results 12/26/2010 10:07 AM WBC [...] 118 eGFR >60 mL/min/1.73 m2eGFR AA* >60 04/19/2011 7:43 AM TEST UR NEGATIVE 12/31/2011 9:56 AM COLOR YELLOW APPEARANCE JULIUS [...] TRICH SEEN CLUE CELLS PRESENT SOURCE: GENITAL SOURCE: GENITAL 05/18/2013 12:40 PM WBC 7.1 [...] 9:53AM Pelvic pain Mar 01 2016 9:53AM Payers Insurance Name Company Name Plan Name Plan Number Policy Number [employer] Group Number Start Date Medicare Part B Medicare [place] [id number] June [place] Medical Assistance Program [place] [employer] G[employer] tance Prog [id number] N/A Medicare Part A Medicare Part A [id number] N/A [place] Supervisor Vendor Quality Prog - RHC [place] Supervisor Vendor Quality Prog - RH C [id number] N/A Disability Determination Disability Determination [id number] N/A [facility] [address] N/A [facility] [place] [facility] [id number] N/A [employer] [id number] N/A Medicare Part A Medicare - Lab/Xray [id number] N/A History of Encounters Visit Date Visit Type Provider 03/01/2016 Office visit Marilu Madsen MARITIME PILOT 07/20/2013 Office visit Fabiana Riverao n MARITIME PILOT 07/16/2013 Office visit Brendan Spencer APR N 05/18/2013 Office visit Marilu Madsen MARITIME PILOT 12/25/2012 Office visit Brendan Spencer APR N 02/12/2012 Records Request Denys Garcia MD 12/31/2011 Office visit Sarah Alvarez MD 05/04/2011 Office visit Denys Garcia MD 04/19/2011 Hospital Denys Garcia MD 04/04/2011 Office visit Denys Garcia MD 03/07/2011 Office visit Denys Garcia MD 02/28/2011 Procedures Denys Garcia MD 02/21/2011 Office visit Sarah Alvarez MD 01/03/2011 Office visit Denys Garcia MD 12/26/2010 Office visit Sarah Alvarez MD
--- OUTSIDE RECORDS SUMMARY | 2019-09-09 14:47 | XMS REPORT ---
Author Sara Houston Organization [facility] Address [address] [place], [place] [address] Care Team Providers Care Chemical Milling Processor Name Role Phone Marilu Madsen PCP Unavailable Marilu Madsen PreferredProvider Unavailable Allergies and Adverse Reactions Name Reaction Notes Keflex Latex Plan of Treatment Planned Activity Comments Planned Date Planned Time Plan/Goal US TRANSVAG NON-OB 03/01/2016 12:00 AM Pap smear 03/01/2016 12:00 AM ALICE prep 03/01/2016 12:00 AM Wet prep 03/01/2016 12:00 AM Herpes Ab IgG 12/25/2012 12:00 AM Gonorrhea 12/25/2012 12:00 AM Medications Name Start Date Expiration [...] Date Medicare Part B [place] [id number] June [place] Medical [place] Program [place] [employer] Prog [id number] N/A Medicare Part A Medicare Part A [id number] N/A [place] Machine Tailer Prog - RHC [place] Machine Tailer Prog - RH C [id number] N/A Disability Determination Disability Determination [id number] N/A [facility] [address] N/A [facility] [place] [facility] [id number] N/A [employer] [id number] N/A Medicare Part A Medicare - Lab/Xray [id number] N/A History of Encounters Visit Date Visit Type Provider 03/01/2016 Office visit Marilu Madsen [employer]EN [employer]ING [employer]W MEMBER 07/20/2013 Office visit Fabiana maldonado [employer]EN [employer]ING [employer] MEMBER 07/16/2013 Office visit Brendan Spencer APR N 05/18/2013 Office visit Marilu Madsen MENHADEN [employer]ING [employer] MEMBER 12/25/2012 Office visit Brendan Spencer APR N [...]
--- OUTSIDE RECORDS SUMMARY | 2019-09-09 14:47 | XMS REPORT ---
Author Author Sara Madsen Organization [facility] Address [address] [place], [place] [address] Care Team Providers Care Gallery Director Name Role Phone Marilu Madsen PCP Unavailable Marilu Madsen PreferredProvider Unavailable Allergies and Adverse Reactions Name Reaction Notes Keflex Latex Plan of Treatment Planned Activity Comments Planned Date Planned Time Plan/Goal US PELVIC NON-OB 03/01/2016 12:00 AM US TRANSVAG NON-OB 03/01/2016 12:00 AM Pap smear 03/01/2016 12:00 AM Chlamydia, Trachomatis NAAT 03/01/2016 12:00 AM Gonorrhea 03/01/2016 12:00 AM ALICE prep 03/01/2016 12:00 AM Wet prep 03/01/2016 12:00 AM Hepatitis B surface antigen 03/01/2016 12:00 AM HIV AG/AB Combo 03/01/2016 12:00 AM RPR W/REFLEX TO TP 03/01/2016 12:00 AM Herpes Ab IgG 12/25/2012 [...] AM URINE TEST Reviewed 03/01/2016 12:00 AM SPECIMEN HANDLING OFFICE-LAB Reviewed 12/31/2011 12:00 AM ASSAY THYROID STIM [...] Negative Hep C Virus Ab <0.1 03/01/2016 9:26 AM Clarity Ur clear Color [...] Date Medicare Part B Medicare [place] [id number] June [place] Medical [place] Program [place] [employer] Prog [id number] N/A Medicare Part A Medicare Part A [id number] N/A [place] Launch Check Out Prog - RHC [place] Launch Check Out Prog - RH C [id number] N/A Disability Determination Disability Determination [id number] N/A [facility] [address] N/A [place] [facility] [place] [facility] [id number] N/A [employer] [id number] N/A Medicare Part A Medicare - Lab/Xray [id number] N/A History of Encounters Visit Date Visit Type Provider 03/01/2016 Office visit Marilu Madsen MANAGER PORTABLE 07/20/2013 Office visit Fabiana maldonado MANAGER PORTABLE 07/16/2013 Office visit Brendan Spencer APR N 05/18/2013 Office visit Marilu Madsen MANAGER PORTABLE 12/25/2012 Office visit Brendan Spencer APR N 02/12/2012 Records Request Denys Garcia MD 12/31/2011 Office visit Sarah Alvarez MD 05/04/2011 Office visit Denys Garcia MD 04/19/2011 [facility] Denys Garcia MD 04/04/2011 Office visit Denys Garcia MD 03/07/2011 Office visit Denys Garcia MD 02/28/2011 Procedures Denys Garcia MD 02/21/2011 Office visit Sarah Alvarez MD 01/03/2011 Office visit Denys Garcia MD 12/26/2010 Office visit Sarah Alvarez MD
--- OUTSIDE RECORDS SUMMARY | 2019-09-09 14:48 | XMS REPORT ---
Author Sara Jiménez Organization [facility] Address [address] [place] [address] Care Team Providers Care Packer Operator Automatic Name Role Phone SARA RIVAS Unavailable PROBLEMS Type Condition ICD9-CM Code SGE75-CA Code Onset Dates Condition S tatus SNOMED Code Problem Vaginal odor N89.8 Active 4718522 06 ALLERGIES No Information SOCIAL HISTORY Never Assessed PLAN OF CARE VITAL SIGNS MEDICATIONS No Known Medications RESULTS No Results PROCEDURES No Known procedures IMMUNIZATIONS No Known Immunizations MEDICAL (GENERAL) HISTORY Type Description Date Surgical History tubal ligation Surgical History stents in kidney Surgical History hernia repair Hospitalization History surgeries
--- OUTSIDE RECORDS SUMMARY | 2019-09-09 14:48 | XMS REPORT | Continuity of Care Document ---
Demographics Preferred Language Unknown Marital Status Unknown Pentecostal Affiliation Unknown Race Unknown Ethnic Group Unknown Author Organization Unknown Address Unknown Phone Unavailable Allergies Active Description Code Type Severity Reaction Onset Reported/Identified Relationship to Patient Clinical Status Yes KEFLEX [id number] BRANDNAME N/A N/A Yes LATEX [id number] ENVIRONMENTAL N/A N/A Yes No Known Drug Allergies [id number] Drug Allergy Unknown N/A 04/08/2019 Medications There is no data. Problems Date Dx Coded Attending Type Code Diagnosis Diagnosed By 07/21/2018 S [id number] Oth er stimulant use, unspecified with intoxication, unspecified 07/21/2018 S R000 Tachy cardia, unspecified 07/21/2018 P R079 Chest pain, unspecified 07/21/2018 S R9431 Abno rmal electrocardiogram [ECG] [EKG] 04/08/2019 ERIK BARTON APRN Ot L29 .9 PRURITUS, UNSPECIFIED 08/13/2019 S N97583 Matias otine dependence, cigarettes, uncomplicated 08/13/2019 P R451 Restl essness and agitation Procedures There is no data. Results Test Result Range RPR, Rfx Qn RPR/Confirm TP - 03/01/16 09 :24 RPR Non Reactive Non Reactive HBsAg Screen - 03/01/16 09:24 HBsAg Screen Negative Negative Complete blood count (CBC) with automate d white blood cell (WBC) differential - 04/08/19 11:35 Blood leukocytes automated count (number/volume) 10.0 10*3/uL 4.3-11.0 Blood erythrocytes automated count (number/volume) 3.75 10*6/uL 4.35-5.85 Venous blood hemoglobin measurement (mass/volume) 11.7 g/dL 11.5-16.0 Blood hematocrit (volume fraction) 35 % 35-52 Automated erythrocyte mean corpuscular volume 92 [ foz_us] 80-99 Automated erythrocyte mean corpuscular h emoglobin (mass per erythrocyte) 31 pg 25-34 Automated erythrocyte mean corpuscular h emoglobin concentration measurement (mass/volume) 34 g/dL 32-36 Automated erythrocyte distribution width ratio 13. 3 % 10.0- 14.5 Automated blood platelet count (count/volume) 300 10*3/uL 130-400 Automated blood platelet mean volume measurement 8.8 [foz_us] 7.4-10.4 Automated blood neutrophils/100 leukocytes 65 % 42-75 Automated blood lymphocytes/100 leukocytes 24 % 12-44 Blood monocytes/100 leukocytes 11 % 0-12 Automated blood eosinophils/100 leukocytes 0 % 0-10 Automated blood basophils/100 leukocytes 1 % 0-10 Blood neutrophils automated count (number/volume) 6.5 10*3 1.8-7.8 Blood lymphocytes automated count (number/volume) 2.4 10*3 1.0-4.0 Blood monocytes automated count (number/volume) 1. 1 10*3 0.0-1.0 Automated eosinophil count 0.0 10*3/uL 0 .0-0.3 Automated blood basophil count (count/volume) 0.1 10*3/uL 0.0-0.1 Comprehensive metabolic panel - 04/08/19 11:35 Serum or plasma sodium measurement (moles/volume) 136 mmol/L 135-145 Serum or plasma potassium measurement (moles/volume) 4.1 mmol/L 3.6-5.0 Serum or plasma chloride measurement (moles/volume) 105 mmol/L 98-107 Carbon dioxide 20 mmol/L 21-32 Serum or plasma anion gap determination (moles/volume) 11 mmol/L 5-14 Serum or plasma urea nitrogen measurement (mass/volume ) 30 mg/dL 7-18 Serum or plasma creatinine measurement (mass/volume) 1.01 mg/dL 0.60-1.30 Serum or plasma urea nitrogen/creatinine mass ratio 30 NRG Serum or plasma creatinine measurement w ith calculation of estimated glomerular filtration rate > NRG Serum or plasma glucose measurement (mass/volume) 92 mg/dL 70-105 Serum or plasma calcium measurement (mass/volume) 9.0 mg/dL 8.5-10.1 Serum or plasma total bilirubin measurement (mass/volu me) 0.6 mg/dL 0.1-1.0 Serum or plasma alkaline phosphatase linda surement (enzymatic activity/volume) 61 U/L 40-136 Serum or plasma aspartate aminotransfera se measurement (enzymatic activity/volume) 22 U/L 5-34 Serum or plasma alanine aminotransferase measurement (enzymatic activity/volume) 22 U/L 0-55 Serum or plasma protein measurement (mass/volume) 7.7 g/dL 6.4-8.2 Serum or plasma albumin measurement (mass/volume) 4.5 g/dL 3.2-4.5 CALCIUM CORRECTED 8.6 mg/dL 8.5-10.1 SUREPATH PAP AND HPV mRNA E6/E7 - 11:18 CLINICAL INFORMATION: NRG LMP: 05/14/2019 NRG PREV. PAP: N/A NRG PREV. BX: NRG SOURCE: Vagina NRG STATEMENT OF ADEQUACY: NRG INTERPRETATION/RESULT: NRG QUALITY ANALYST/TECHNICAL WRITER: NRG HPV mRNA E6/E7, SUREPATH VIAL Not Detected NOT DETECTED GENERAL CATEGORIZATION: NRG COMMENT: NRG PATHOLOGIST: NRG COMMENT NRG CULTURE, GENITAL - 06/12/19 11:20 CULTURE, GENITAL SEE NOTE NRG CULTURE, GENITAL - 08/13/19 15:44 CULTURE, GENITAL SEE NOTE NRG GC/CHLAMYDIA (SWAB OR URINE)-RAPID - 15:44 CHLAMYDIA TRACHOMATIS RNA, TMA NOT DETECTED NOT DETECTED NEISSERIA GONORRHOEAE RNA, TMA NOT DETECTED NOT DETECTED COMMENT NRG ZI TEST URINE - 08/13/19 16:03 TEST UR NEGATIVE NRG ZI RAPID DRUG SCREEN - 08/13/19 16:03 ZI RAPID DRUG SCREEN N/A NRG Cannabinoids (THC) NEGATIVE NEG: < 50 ng/ml Phencyclidine (PCP) NEGATIVE NEG: < 2 5 ng/ml Cocaine NEGATIVE NEG: < 300 ng/ml Methamphetamine NEGATIVE NEG: < 1000 ng /ml Opiates NEGATIVE NEG: < 300 ng/ml Amphetamine NEGATIVE NEG: < 1000 ng/ml Benzodiazepines NEGATIVE NEG: < 300 ng /ml Tricyclic Antidepres NEGATIVE NEG: < 3 00 ng/ml Methadone NEGATIVE NEG: < 300 ng/ml Barbiturates NEGATIVE NEG: < 200 ng/ml Oxycodone NEGATIVE NEG: < 100 ng/ml Propoxyphene (PPX) NEGATIVE NEG: < 300 ng/ml TRICHOMONAS AMPLIFIED - 08/13/19 16:03 Trichomonas, Amplified NEGATIVE Negativ e ZI VENOUS BLOOD GAS - 08/13/19 16:10 ZI VENOUS BLOOD GAS N/A NRG FIO2 21 NRG vPH 7.41 7.32-7.43 vPCO2 38 mmHG 40-60 vPO2 35 mmHG 30-55 vBE 0.0 mmol/L -2.0-2.0 vHCO3 25 mmol/L 22-27 vTCO2 26 mmol/L 24-28 vO2SAT 68 % 40-85 CBC W/AUTO DIFF - 08/13/19 16:10 CBC W/AUTO DIFF N/A NRG WBC 5.7 TH/CMM 4.5-10.8 RBC 3.59 ML/CMM 4.20-5.40 HGB 11.0 G/DL 12.0-16.0 HCT 32.9 % 37.0-47.0 MCV 92 FL 81-99 MCH 30.6 PG 27.0-33.0 MCHC 33.4 G/DL 31.0-36.0 RDW SD 46 FL 36-50 RDW CV 14.3 % 0.0-14.8 MPV 9.3 FL 9.3-12.5 PLT 288 TH/CMM 130-440 %NEUT 46.9 % NRG %LYMP 40.4 % NRG %MONO 11.3 % NRG %EOS 0.9 % NRG %BASO 0.5 % NRG #NEUT 2.66 TH/CMM 2.10-8.20 #LYMP 2.29 TH/CMM 0.90-5.20 #MONO 0.64 TH/CMM 0.16-1.00 #EOS 0.05 TH/CMM 0.00-0.80 #BASO 0.03 TH/CMM 0.00-0.20 COMPREHENSIVE METABOLIC PANEL - 08/12 16:10 GLUCOSE 98 MG/DL 70-100 SODIUM 140 MEQ/L 135-148 POTASSIUM 3.6 MEQ/L 3.5-5.3 CHLORIDE 103 MEQ/L 96-110 CO2 27 MEQ/L 22-29 BUN 19 MG/DL 8-22 CREATININE 0.89 MG/DL 0.57-1.11 SGOT/AST 24 IU/L 10-40 SGPT/ALT 26 IU/L 8-54 ALK PHOS 58 IU/L 40-150 TOTAL PROTEIN 7.2 G/DL 5.5-8.5 ALBUMIN 3.6 G/DL 3.1-5.4 TOTAL BILI 0.5 MG/DL 0.0-1.5 CALCIUM 8.5 MG/DL 8.2-10.6 AGE 39 yrs NRG GFR NonAA 70 NRG GFR AA 85 NRG eGFR 70 mL/min/1.7 NRG eGFR AA* >60 mL/min/1.7 NRG ZI COMPREHENSIVE METABOLIC PANEL N/A NRG ZI SALICYLATE - 08/13/19 16:10 SALICYLATE 5.0 MG/DL 2.8-20.0 ZI TSH - 08/13/19 16:10 TSH 0.873 mIU/L 0.358-3.740 ZI ALCOHOL - 08/13/19 16:10 ETHANOL <3 MG/DL NRG ZI ACETAMINOPHEN - 08/13/19 16:10 ACETAMINOPHEN 0.00 UG/ML NRG QUANTIFERON(R)-TB GOLD PLUS, 1 TUBE - 10:51 QUANTIFERON(R)-TB GOLD PLUS, 1 TUBE NEGATIVE NEGATIVE NIL 0.01 IU/mL NRG MITOGEN-NIL 7.75 IU/mL NRG TB1-NIL 0.00 IU/mL NRG TB2-NIL 0.00 IU/mL NRG CBC - 08/26/19 11:08 WHITE BLOOD CELL COUNT 4.6 Thousand/uL 3 .8-10.8 RED BLOOD CELL COUNT 3.79 Million/uL 3.8 0-5.10 HEMOGLOBIN 11.5 g/dL 11.7-15.5 HEMATOCRIT 35.0 % 35.0-45.0 MCV 92.3 fL 80.0-100.0 MCH 30.3 pg 27.0-33.0 MCHC 32.9 g/dL 32.0-36.0 RDW 13.7 % 11.0-15.0 PLATELET COUNT 286 Thousand/uL 140-400 MPV 9.3 fL 7.5-12.5 ABSOLUTE NEUTROPHILS 2392 cells/uL 1500- 7800 ABSOLUTE LYMPHOCYTES 1642 cells/uL 850-3 900 ABSOLUTE MONOCYTES 492 cells/uL 200-950 ABSOLUTE EOSINOPHILS 41 cells/uL 15-500 ABSOLUTE BASOPHILS 32 cells/uL 0-200 NEUTROPHILS 52 % NRG LYMPHOCYTES 35.7 % NRG MONOCYTES 10.7 % NRG EOSINOPHILS 0.9 % NRG BASOPHILS 0.7 % NRG KAILEY ANALYZER - 08/26/19 11:08 KAILEY SCREEN, IFA NEGATIVE NEGATIVE CULTURE, GENITAL - 08/26/19 11:08 CULTURE, GENITAL SEE NOTE NRG ESR/SED RATE - 08/27/19 11:55 SED RATE BY MODIFIED WESTERGREN TNP mm/h NRG CRP - 08/27/19 11:55 C-REACTIVE PROTEIN 0.3 mg/L <8.0 RA (RHEUMATOID) FACTOR - 08/27/19 11:55 RHEUMATOID FACTOR <14 IU/mL <14 CCP ANTIBODY - 08/27/19 11:55 CYCLIC CITRULLINATED PEPTIDE (CCP) AB (IGG) <16 UN ITS NRG TSH - 08/27/19 11:55 TSH 1.29 mIU/L NRG UA W/MICRO C&S IF IND - 08/30/19 08:09 GLUCOSE Normal NL: NEGATIVE mg/dl COLOR Light-Yellow NL: YELLOW CLARITY Clear NL: CLEAR SPEC GRAV 1.024 NL: 1.002 - 1.022 pH 5.5 NL: 5 - 9 PROTEIN 10 NL: NEGATIVE mg/dl KETONE Negative NL: NEGATIVE mg/dl BILIRUBIN Negative NL: NEGATIVE BLOOD Trace NL: NEGATIVE NITRITE Negative NL: NEGATIVE LEUK SCREEN Negative NL: NEGATIVE RBC/HPF 4-10 NL: NONE SEEN WBC/HPF 0-5 NL: NONE SEEN BACTERIA/HPF None Seen NL: NONE SEEN SQUAMOUS EPI/LPF Few NL: NONE SEE N CULT SET UP? NO NRG MUCOUS/LPF Few NL: NONE SEEN HYALINE CAST/LPF 1+ NL: NONE SEE N UA W/MICRO C&S IF IND N/A NRG TEST URINE - 08/30/19 08:09 TEST UR NEGATIVE NRG WET PREP - 08/30/19 08:40 WET PREP NO TRICH SEEN NORMAL: NONE S EEN CLUE CELLS NONE SEEN NORMAL: NONE SEEN CHLAMYDIA/GC AMPLIFIED DNA - 08/30/19 08 :40 Neisseria Gonorrhoeae NEGATIVE NEGATIVE Chlamydia Trachomatis NEGATIVE NEGATIVE CBC W/ AUTO DIFF (RFLX MAN DIFF IF IND) - 09/07/19 19:35 WBC 9.7 TH/CMM 4.5-10.8 RBC 3.13 ML/CMM 4.20-5.40 HGB 9.7 G/DL 12.0-16.0 HCT 30.0 % 37.0-47.0 MCV 96 FL 81-99 MCH 31.0 PG 27.0-33.0 MCHC 32.3 G/DL 31.0-36.0 RDW SD 51 FL 36-50 RDW CV 14.7 % 0.0-14.8 MPV 9.0 FL 9.3-12.5 PLT 236 TH/CMM 130-440 %NEUT 81.1 % NRG %LYMP 12.7 % NRG %MONO 5.5 % NRG %EOS 0.1 % NRG %BASO 0.2 % NRG #NEUT 7.88 TH/CMM 2.10-8.20 #LYMP 1.23 TH/CMM 0.90-5.20 #MONO 0.53 TH/CMM 0.16-1.00 #EOS 0.01 TH/CMM 0.00-0.80 #BASO 0.02 TH/CMM 0.00-0.20 CBC W/ AUTO DIFF (RFLX MAN DIFF IF IND) N/A NRG NRBC# 0.00 TH/CMM 0.00-0.00 NRBC% 0.0 /100WBC 0.0-2.0 MANUAL DIFF NOT IND NRG SED RATE - 09/07/19 19:35 SEDRATE 1 MM/HR 0-20 PT/PTT - 09/07/19 19:35 Protime 11.0 SEC 9.4-12.5 INR 1.0 NRG PTT 22.8 SEC 25.1-36.5 COMPREHENSIVE METABOLIC PANEL - 09/07/19 19:35 COMPREHENSIVE METABOLIC PANEL N/A NRG GLUCOSE 107 MG/DL 70-100 SODIUM 139 MEQ/L 135-148 POTASSIUM 4.4 MEQ/L 3.5-5.3 CHLORIDE 108 MEQ/L 96-110 CO2 21 MEQ/L 22-29 BUN 18 MG/DL 8-22 CREATININE 0.82 MG/DL 0.57-1.11 SGOT/AST 17 IU/L 10-40 SGPT/ALT 19 IU/L 8-54 ALK PHOS 54 IU/L 40-150 TOTAL PROTEIN 7.1 G/DL 5.5-8.5 ALBUMIN 4.1 G/DL 3.1-5.4 TOTAL BILI 0.3 MG/DL 0.0-1.5 CALCIUM 8.2 MG/DL 8.2-10.6 AGE 39 yrs NRG GFR NonAA 77 NRG GFR AA 93 NRG eGFR 77 mL/min/1.7 NRG eGFR AA* >60 mL/min/1.7 NRG TROPONIN-I ADV - 09/07/19 19:35 TROPONIN-I AD <0.04 ng/mL 0.04-0.40 ALCOHOL - 09/07/19 19:35 ETHANOL <10 MG/DL NRG ACETAMINOPHEN - 09/07/19 19:35 ACETAMINOPHEN <0.60 UG/ML NRG SALICYLATE - 09/07/19 19:35 SALICYLATE <5.0 MG/DL 0.0-45.0 TSH W/RFLX T4 FREE - 09/07/19 19:35 TSH W/REFLEX 1.67 mIU/L 0.35-4.94 UA ROUTINE C&S IF IND - 09/07/19 19:45 GLUCOSE Normal NL: NEGATIVE mg/dl UA ROUTINE C&S IF IND N/A NRG COLOR Light-Yellow NL: YELLOW CLARITY Clear NL: CLEAR SPEC GRAV 1.014 NL: 1.002 - 1.022 pH 5.5 NL: 5 - 9 PROTEIN Negative NL: NEGATIVE mg/dl KETONE Negative NL: NEGATIVE mg/dl BILIRUBIN Negative NL: NEGATIVE BLOOD Negative NL: NEGATIVE NITRITE Negative NL: NEGATIVE LEUK SCREEN 25 NL: NEGATIVE Micro Indicated? MICRO IND NRG RBC/HPF 0-3 NL: NONE SEEN WBC/HPF 0-5 NL: NONE SEEN BACTERIA/HPF 1+ NL: NONE SEEN SQUAMOUS EPI/LPF 1+ NL: NONE SEE N CULT SET UP? NO NRG MUCOUS/LPF Few NL: NONE SEEN TEST URINE - 09/07/19 19:50 TEST UR NEGATIVE NRG RAPID DRUG SCREEN - 09/07/19 19:50 Cannabinoids (THC) NEGATIVE NEG: < 50 ng/ml Phencyclidine (PCP) NEGATIVE NEG: < 2 5 ng/ml Cocaine NEGATIVE NEG: < 300 ng/ml Methamphetamine NEGATIVE NEG: < 1000 ng /ml Opiates NEGATIVE NEG: < 300 ng/ml Amphetamine NEGATIVE NEG: < 1000 ng/ml Benzodiazepines NEGATIVE NEG: < 300 ng /ml Tricyclic Antidepres NEGATIVE NEG: < 3 00 ng/ml Methadone NEGATIVE NEG: < 300 ng/ml Barbiturates NEGATIVE NEG: < 200 ng/ml Oxycodone NEGATIVE NEG: < 100 ng/ml Propoxyphene (PPX) NEGATIVE NEG: < 300 ng/ml RAPID DRUG SCREEN N/A NRG Encounters ACCT No. Visit Date/Time Discharge Status Pt. Type Provider Facility Loc./Unit Complaint [id number] 09/08/2019 15:31:16 Document Registration [id number] 09/08/2019 14:09:41 Document Registration [id number] 09/07/2019 19:11:54 Document Registration [id number] 09/07/2019 18:58:00 Document Registration [id number] 08/30/2019 08:08:02 Document Registration [id number] 08/30/2019 07:14:44 Document Registration [id number] 08/13/2019 16:02:47 Document Registration [id number] 08/13/2019 15:52:49 Document Registration [id number] 07/21/2018 17:39:37 Document Registration [id number] 07/21/2018 16:56:26 Document Registration [id number] 09/05/2019 09:30:00 09/05/2019 23:59: 59 CLS Outpatient RIVAS, ANAMARIA CHCPHUONG PATTEN [id number] 08/27/2019 10:20:00 Document Registration [id number] 08/26/2019 09:20:00 Document Registration [id number] 08/13/2019 15:20:00 Document Registration [id number] 06/12/2019 10:20:00 Document Registration [id number] 09/22/2018 12:00:55 09/22/2018 23:59: 59 CLS Outpatient AbdulazizRashida [id number] 12/17/2016 15:23:19 12/17/2016 23:59: 59 CLS Outpatient Denys Garcia [id number] 12/05/2016 14:04:29 12/05/2016 23:59: 59 CLS Outpatient Jose Denys [id number] 03/01/2016 08:58:35 03/01/2016 23:59: 59 CLS Outpatient Marilu Madsen [id number] 07/20/2013 16:17:17 07/20/2013 23:59: 59 CLS Outpatient Fabiana Solis [id number] 07/16/2013 14:42:30 07/16/2013 23:59: 59 CLS Outpatient Brendan Spencer [id number] 05/18/2013 12:14:25 05/18/2013 23:59: 59 CLS Outpatient Marilu Madsen [id number] 09/09/2019 11:39:00 020 12:31:00 DIS Emergency ERIK BARTON APRN [facility] ER SOA;LUPUS [id number] 04/08/2019 11:08:00 020 12:01:00 DIS Emergency ERIK BARTON APRN [facility] ER ITCHING [id number] 03/02/2016 07:07:00 Document Registration [id number] 03/02/2016 14:08:00 Document Registration
--- OUTSIDE RECORDS SUMMARY | 2019-09-09 14:48 | XMS REPORT ---
Author Author Sara Madsen Organization [facility] Address [address] [place], [place] [address] Care Team Providers Care Bootmaker Name Role Phone Marilu Madsen PCP Unavailable Marilu Madsen PreferredProvider Unavailable Allergies and Adverse Reactions Name Reaction Notes Keflex Latex Plan of Treatment Planned Activity Comments Planned Date Planned Time Plan/Goal Pap smear 03/01/2016 12:00 AM Chlamydia, Trachomatis NAAT 03/01/2016 12:00 AM Gonorrhea 03/01/2016 12:00 AM ALICE prep 03/01/2016 12:00 AM Wet prep 03/01/2016 12:00 AM Hepatitis B surface antigen 03/01/2016 12:00 AM HIV AG/AB Combo 03/01/2016 12:00 AM RPR W/REFLEX TO TP 03/01/2016 12:00 AM US PELVIC NON-OB 03/01/2016 12:00 AM US TRANSVAG NON-OB 03/01/2016 12:00 AM Herpes Ab IgG 12/25/2012 [...] IgM Negative Hep C Virus Ab <0.1 History Of Immunizations Not available. History of [...] Date Medicare Part B Medicare [place] [id number] June [place] [facility] [place] Medical Gennaro tance Prog [id number] N/A Medicare Part A Medicare Part A [id number] N/A [place] [facility] Nursing Tech Prog - RHC [place] [facility] Nursing Tech Prog - RH C [id number] N/A Disability Determination Disability Determination [id number] N/A [facility] [id number] N/A [facility] [place] [facility] Free Clinic [id number] N/A [employer] Detection [employer] Works [id number] N/A Medicare Part A Medicare - Lab/Xray [id number] N/A History of Encounters Visit Date Visit Type Provider 03/01/2016 Office visit Marilu Madsen KNIT GOODS WASHER 07/20/2013 Office visit Fabiana maldonado KNIT GOODS WASHER 07/16/2013 Office visit Brendan Spencer APR N 05/18/2013 Office visit Marilu Madsen KNIT GOODS WASHER 12/25/2012 Office visit Brendan Spencer APR N [...]
--- OUTSIDE RECORDS SUMMARY | 2019-09-09 14:48 | XMS REPORT ---
Author Author Anamaria RIVAS Organization [facility] Address [address] [place] [address] Care Team Providers Care Client Service Representative Name Role Phone ANAMARIA RIVAS Unavailable PROBLEMS Type Condition ICD9-CM Code [id number] Code Onset Dates Condition S tatus SNOMED Code Problem Vaginal odor N89.8 Active 1755784 06 ALLERGIES Substance Reaction Event Type Date Status latex swelling Non Drug Allergy Oct, Active keflex turn blood black Non Drug Allergy Oct, Active ENCOUNTERS Encounter Location Date Diagnosis [facility] [employer] [id number] [place] [address] Oct, Right otitis media with effusion H65.91 and Skin lesion of back L98.9 [facility] [address] [facility] [id number] [place] [id number] Aug, Encounter for dental examina tion and cleaning without abnormal findings Z01.20 [facility] [id number] [place] [address] July, [facility] [employer] [id number] [place] [address] Jun, Vaginal odor N89.8 [facility] [id number] [place] [id number] May, Dental examination Z01.20 an d Dental caries K02.9 [facility] [address] [id number] [place] [address] May, [facility]ATTENBERNARDA Joseph [address] [place] [address] 09 May, 2016 Other specified bacterial agents as the cause of diseases classified elsewhere B96.89 and Acute vaginitis N76.0 [facility] PATTEN [address] [place] [address] July, Infection of ear lobe, left H60.92 ; Eamon quent urination R35.0 and Gastroesophageal reflux disease without esophagitis K21.9 IMMUNIZATIONS No Known Immunizations SOCIAL HISTORY Never Assessed REASON FOR VISIT Ear pain/Swelling-Ear pain bilat - R ear is worse, hard to hear x 5 days- Parvin larry RN PLAN OF CARE Activity Details Follow Up prn Reason: VITAL SIGNS Height 66.34 in 2016-11-21 Weight 140.9 lbs 2016-11-21 Temperature 98.7 degrees Fahrenheit 2016-11-21 Heart Rate 74 bpm 2016-11-21 Respiratory Rate 18 2016-11-21 BMI 22.51 kg/m2 2016-11-21 Blood pressure systolic 118 mmHg 2016-11-21 Blood pressure diastolic 62 mmHg 2016-11-21 MEDICATIONS Medication Instructions Dosage Frequency Start Date End Date Duration S tatus Cipro 500 mg Orally Twice a day 1 tablet 12h 30 Oct, 2016 9 Nov, 201 7 10 day(s) Active RESULTS No Results PROCEDURES No Known procedures INSTRUCTIONS MEDICATIONS ADMINISTERED No Known Medications MEDICAL (GENERAL) HISTORY Type Description Date Surgical History tubal ligation Surgical History stents in kidney Surgical History hernia repair Hospitalization History surgeries
--- OUTSIDE RECORDS SUMMARY | 2019-09-09 14:48 | XMS REPORT ---
Author Author Sara Garcia Organization [facility] Address [address] [place], [place] [address] Care Team Providers Care Animal Caregiver Name Role Phone Denys Garcia PCP Unavailable [...] HC BMI BSA BMI Percentile O2 Sat(%) 12/17/2016 2:35:00 PM 116 mmHg 70 mmHg 88 bpm 20 rpm 98.7 F 141 lbs 68 in 21.44 kg/m2 1.75 m2 98 % 03/01/2016 8:07:00 AM 124 mmHg 64 mmHg 62 bpm 18 rpm 97.6 F 155.375 lbs 69 in 22.9446 kg/m 1.8523 m 97 % 07/20/2013 3:24:00 PM 115 mmHg 72 mmHg 78 bpm 18 rpm 98 F 138 lbs 68 in 20.98 kg/m2 1.73 m2 07/16/2013 1:44:00 PM 142 mmHg 92 mmHg 72 bpm 16 rpm 98.5 F 141.375 lbs 100 % 05/18/2013 11:21:00 AM 142 mmHg 76 mmHg 92 bpm 18 rpm 98.5 F 136.375 lbs 66 in 22.01 kg/m2 1.70 m2 95 % 12/31/2011 9:25:00 AM 122 mmHg 70 mmHg 98 bpm 16 rpm 96.8 F 128.125 lbs 99 % 05/04/2011 10:53:00 AM 110 mmHg 70 mmHg 76 bpm 18 rpm 97.8 F 126 lbs 66 in 20.34 kg/m2 1.63 m2 97 % 04/04/2011 10:11:00 AM 110 mmHg 60 mmHg 96 bpm 18 rpm 96.7 F 127 lbs 100 % 03/07/2011 10:05:00 AM 120 mmHg 80 mmHg 108 bpm 18 rpm 96.4 F 130 lbs 66 i n 20.98 kg/m2 1.66 m2 100 % 02/28/2011 10:30:00 AM 100 mmHg 78 mmHg 78 bpm 18 rpm 96.6 F 132 lbs 66 in 21.3051 kg/m 1.6698 m 100 % 02/21/2011 10:20:00 AM 124 mmHg 86 mmHg 79 bpm 14 rpm 97.6 F 131.125 lbs 99 % 01/03/2011 10:59:00 AM 120 mmHg 60 mmHg 66 bpm 18 rpm 97.3 F 137 lbs 66 in 22.1122 kg/m 1.7011 m 99 % 12/26/2010 9:30:00 AM 120 mmHg 76 mmHg 99 bpm 16 rpm 97.9 F 137.25 lbs 66. 75 in 21.66 kg/m2 1.71 m2 100 % Social History Name Description Comments [...] Skin Of Trunk Dec 05 2016 1:59PM Postoperative Follow-up Dec 17 2016 2:35PM Payers Insurance Name Company Name Plan Name Plan Number Policy Number [employer] Number Start Date Medicare Part B Medicare Of [place] [id number] June [place] Medical Assistance Program [place] Medical Gennaro tance Prog [id number] N/A Medicare Part A Medicare Part A [id number] N/A [place] Computed Tomography Technician Prog - RHC [place] Computed Tomography Technician Prog - RH C [id number] N/A Disability Determination Disability Determination [id number] N/A [facility] [id number] N/[place] [facility] [place] [facility] [id number] N/A [employer] [id number] N/A Medicare Part A Medicare - Lab/Xray [id number] N/A History of Encounters Visit Date Visit Type Provider 12/17/2016 Office visit Denys Garcia MD 12/05/2016 Office visit Denys Garcia MD 03/01/2016 Office visit Marilu Madsen SPRING FITTER HELPER 07/20/2013 Office visit Fabiana JazmynDotty maldonado SPRING FITTER HELPER 07/16/2013 Office visit Brendan Spencer APR N 05/18/2013 Office visit Marilu Madsen SPRING FITTER HELPER 12/25/2012 Office visit Brendan Spencer APR N 02/12/2012 Records Request Denys Garcia MD 12/31/2011 Office visit Sarah Alvarez MD 05/04/2011 Office visit Denys Garcia MD 04/19/2011 [facility] Denys Garcia MD 04/04/2011 Office visit Denys Garcia MD 03/07/2011 Office visit Denys Garcia MD 02/28/2011 Procedures Denys Garcia MD 02/21/2011 Office visit Sarah Alvarez MD 01/03/2011 Office visit Denys Garcia MD 12/26/2010 Office visit Sarah Alvarez MD
--- OUTSIDE RECORDS SUMMARY | 2019-09-09 14:48 | XMS REPORT ---
Author Author Sara RIVAS Organization [facility] Address [address] [place] [address] Care Team Providers Care Coke Still Cleaner Name Role Phone SARA RIVAS Unavailable PROBLEMS Type Condition ICD9-CM Code [id number] Code Onset Dates Condition S tatus SNOMED Code Problem Vaginal odor N89.8 Active 8850600 [id number] ALLERGIES Substance Reaction Event Type Date Status latex swelling Non Drug Allergy Jun, Active keflex turn blood black Non Drug Allergy Jun, Active SOCIAL HISTORY Never Assessed PLAN OF CARE Activity Details Follow Up prn Reason: VITAL SIGNS Height 66.34 in 2016-07-17 Weight 155.1 lbs 2016-07-17 Temperature 98.1 degrees Fahrenheit 2016-07-17 Heart Rate 84 bpm 2016-07-17 Respiratory Rate 18 2016-07-17 BMI 24.78 kg/m2 2016-07-17 Blood pressure systolic 130 mmHg 2016-07-17 Blood pressure diastolic 60 mmHg 2016-07-17 MEDICATIONS Medication Instructions Dosage Frequency Start Date End Date Duration S tatus HydrOXYzine HCl 25 MG Orally 3 times a day prn 1 tablet as needed Active RESULTS Name Result Date Reference Range CULTURE, GENITAL 2016-07-17 Genital Culture, Routine Final report Result 1 TRICHOMONAS (IN HOUSE) 2016-07-17 TRICHOMONAS negative Control + Lot # [id number] Exp date 08/2017 BACTERIAL VAGINOSIS (IN HOUSE) 2016-07-17 RESULTS negative Control + Lot # [id number] Exp date 12/2016 GC/CHLAM PROBE (STATE) 2016-07-17 CHLAMYDIA GC PROCEDURES Procedure Date Ordered Result Body Site TRICHOMONAS ASSAY W/OPTIC July 17, 2016 BUTLER VAG, DNA, DIR PROBE July 17, 2016 CULTURE, BACTERIA, OTHER July 17, 2016 No Charge July 17, 2016 IMMUNIZATIONS No Known Immunizations MEDICAL (GENERAL) HISTORY Type Description Date Surgical History tubal ligation Surgical History stents in kidney Surgical History hernia repair Hospitalization History surgeries
[2019-09-10] MEDS ORDERED: OLAN10TA4 PO (14:53)
== END 2019-09-09 12:31 | disposition home or self-care (01) ==
LOC: EDUNIT# 11:37 → ER 11:39
DX: M32.9 Systemic lupus erythematosus, unspecified (principal); F29 Unspecified psychosis not due to a substance or known physiological condition; F15.20 Other stimulant dependence, uncomplicated; Z77.22 Contact with and (suspected) exposure to environmental tobacco smoke (acute) (chronic)
CPT/HCPCS: 99284

== ENCOUNTER 2019-09-10 14:47 | Emergency (ER) | payer SELFPAY ==
[~2019-09-10] VITALS: Ht 165.1 cm; Wt 56.8 kg
[2019-09-10] MEDS ORDERED: OLAN10TA4 PO (14:53)
--- NOTE | 2019-09-10 14:53 | ED General ---
General Stated Complaint: LUPUS Source of Information: Patient Exam Limitations: No Limitations History of Present Illness Date Seen by Provider: Sep 10, 2019 Time Seen by Provider: 14:51 Initial Comments To ER stating she would like a refill of her hydroxy chloroquine for lupus Timing/Duration: 1-2 Days Severity: Moderate Associated Systoms: Denies Symptoms Allergies and Home Medications Allergies Coded Allergies: No Known Drug Allergies (Unverified , 04/08/19) Home Medications Olanzapine 10 Mg Tab.rapdis, 10 MG PO DAILY Prescribed by: ERIK BARTON on 09/10/19 1453 Patient Home Medication List Home Medication List Reviewed: Yes Review of Systems Review of Systems Constitutional: see HPI EENTM: see HPI Respiratory: no symptoms reported Genitourinary: no symptoms reported Musculoskeletal: joint pain Skin: no symptoms reported Psychiatric/Neurological: No Symptoms Reported Physical Exam Vital Signs Vital Signs - First Documented 09/10/19 09/10/19 14:47 15:00 Temp 36.3 Pulse 80 Resp 18 B/P (MAP) 0/0 Pulse Ox 97 Capillary Refill : Height, Weight, BMI Height: '" Weight: lbs. oz. kg; BMI Method: General Appearance: No Apparent Distress, WD/WN, Thin, Other (manic, Dr. Thurman to be not suicidal or homicidal, has a variety of complaints, speaks about a variety of subjects.) Eyes: Bilateral Eye Normal Inspection, Bilateral Eye PERRL Respiratory: No Accessory Muscle Use, No Respiratory Distress Gastrointestinal: Non Tender, Soft Extremity: Normal Capillary Refill, Normal Inspection Neurologic/Psychiatric: Alert, Oriented x3 Skin: Normal Color, Warm/Dry Progress/Results/Core Measures Suspected Sepsis SIRS Temperature: Pulse: Respiratory Rate: Blood Pressure / Mean: Results/Orders Vital Signs/I&O 09/10/19 09/10/19 14:47 15:00 Temp 36.3 36.3 Pulse 80 80 Resp 18 18 B/P (MAP) 0/0 Pulse Ox 97 Capillary Refill : Departure Impression Primary Impression: General medical exam Additional Impression: Psychosis Disposition: 01 HOME, SELF-CARE Condition: Stable Departure-Patient Inst. Decision time for Depature: 14:51 Patient Instructions: NO INSTRUCTIONS GIVEN Add. Discharge Instructions: Go to [facility] for further evaluation Scripts Olanzapine (Zyprexa Zydis) 10 Mg Tab.rapdis 10 MG PO DAILY, #14 TAB Prov: ERIK BARTON APRN 09/10/19 ERIK BARTON APRN Sep 10, 2019 14:53
[2019-09-10 15:00] VITALS: BP 0/0
--- NOTE | 2019-09-10 15:04 | NUR ---
REFUSED TO HAVE B/P TKEN AND SIGN DISCHARGE INSTRUCTION AND LEAVE HOSPITAL PPD NOTIFIED
--- OUTSIDE RECORDS SUMMARY | 2019-09-10 19:38 | XMS REPORT | Continuity of Care Document ---
Demographics Preferred Language Unknown Marital Status Unknown [employer] Affiliation Unknown Race Unknown Ethnic Group Unknown Author Organization Unknown Address Unknown Phone Unavailable Allergies Active Description Code Type Severity Reaction Onset Reported/Identified Relationship to Patient Clinical Status Yes KEFLEX [id number] BRANDNAME N/A N/A Yes LATEX [id number] ENVIRONMENTAL N/A N/A Yes No Known Drug Allergies [id number] Drug Allergy Unknown N/A 04/08/2019 Medications There is no data. Problems Date Dx Coded Attending Type Code Diagnosis Diagnosed By 07/21/2018 S L01114 Oth er stimulant use, unspecified with intoxication, unspecified 07/21/2018 S R000 Tachy cardia, unspecified 07/21/2018 P R079 Chest pain, unspecified 07/21/2018 S R9431 Abno rmal electrocardiogram [ECG] [EKG] 04/08/2019 ERIK BARTON APRN Ot L29 .9 PRURITUS, UNSPECIFIED 08/13/2019 S K76706 Matias otine dependence, cigarettes, uncomplicated 08/13/2019 P [...] NRG STATEMENT OF ADEQUACY: NRG INTERPRETATION/RESULT: NRG WINDOWS 7 [employer] LE[employer]: NRG HPV mRNA E6/E7, SUREPATH VIAL Not [...] Status Pt. Type Provider Facility Loc./Unit Complaint [id number] 09/08/2019 15:31:16 Document Registration [id number] 09/08/2019 14:09:41 Document Registration [id number] 09/07/2019 19:11:54 Document Registration [id number] 09/07/2019 18:58:00 Document Registration [id number] 08/30/2019 08:08:02 Document Registration [id number] 08/30/2019 07:14:44 Document Registration [id number] 08/13/2019 16:02:47 Document Registration [id number] 08/13/2019 15:52:49 Document Registration [id number] 07/21/2018 17:39:37 Document Registration [id number] 07/21/2018 16:56:26 Document Registration [id number] 09/08/2019 14:20:00 ACT Outpatient RIVAS, ANAMARIA CHCPHUONG HALL ROSANA [id number] 08/27/2019 10:20:00 Document Registration [id number] 08/26/2019 09:20:00 Document Registration [id number] 08/13/2019 15:20:00 Document Registration [id number] 06/12/2019 10:20:00 Document Registration [id number] 09/22/2018 12:00:55 09/22/2018 23:59: 59 CLS Outpatient Rashida Cintron [id number] 12/17/2016 15:23:19 12/17/2016 23:59: 59 CLS Outpatient Denys Garcia [id number] 12/05/2016 14:04:29 12/05/2016 23:59: 59 CLS Outpatient Denys Garcia [id number] 03/01/2016 08:58:35 03/01/2016 23:59: 59 CLS Outpatient Marilu Madsen [id number] 07/20/2013 16:17:17 07/20/2013 23:59: 59 CLS Outpatient Fabiana Solis [id number] 07/16/2013 14:42:30 07/16/2013 23:59: 59 CLS Outpatient Brendan Spencer [id number] 05/18/2013 12:14:25 05/18/2013 23:59: 59 CLS Outpatient Marilu Madsen [id number] 09/09/2019 11:39:00 020 12:31:00 DIS Emergency ERIK BAROTN APRN [facility] ER SOA;LUPUS [id number] 04/08/2019 11:08:00 020 12:01:00 DIS Emergency ERIK BARTON APRN [facility] ER ITCHING [id number] 03/02/2016 07:07:00 Document Registration [id number] 03/02/2016 14:08:00 Document Registration
== END 2019-09-10 15:03 | disposition home or self-care (01) ==
LOC: EDUNIT# 14:47 → ER 14:52
DX: F29 Unspecified psychosis not due to a substance or known physiological condition (principal)
CPT/HCPCS: 99283